=== PATIENT | female | born 1960 | race Caucasian/White ===

== ENCOUNTER 2022-07-18 15:10 | Outpatient (REF) | payer BC, SELFPAY ==
[2022-07-18 16:50] LABS: Abs Immature Grans 0.03 10^3/uL (0.0-0.06); Absolute Basophil Count 0.03 10^3/uL (0.0-0.2); Absolute Eosinophil Count 0.15 10^3/uL (0.0-0.7); Absolute Lymphocyte Count 1.69 10^3/uL (1.2-3.4); Absolute Monocyte Count 0.42 10^3/uL (0.1-0.8); Absolute Neutrophil Count 6.04 10^3/uL (1.2-6.7); Basophils % 0.4; Eosinophils % 1.8; HCT 45.8 % (36.0-46.0); HGB 15.4 g/dL (11.2-15.7); Immature Grans % 0.4; Lymphocytes % 20.2; MCH 29.6 pg (27.0-33.0); MCHC 33.6 % (32.0-36.0); MCV 88 fL (80-95); MPV 10.9 fL (8.0-11.0); Neutrophils % 72.2; Platelet Count 309 10^3/uL (130-400); RDW 12.1 % (11.7-14.6); RDW-SD 39.3 fL; WBC 8.36 10^3/uL (4.4-10.8)
[2022-07-18 17:29] LABS: Hemoglobin A1C 5.6 % (<5.7)
[2022-07-18 18:06] LABS: ALT 73 U/L (14-59); AST 35 U/L (15-37); Albumin 4.2 g/dL (3.4-5.0); Alkaline Phosphatase 110 U/L (46-116); Anion Gap 13.3 mmol/L (3-11); BUN 11 mg/dL (7-18); Bilirubin, Total 0.5 mg/dL (0.2-1.0); CO2 23.7 mmol/L (21.0-32.0); Calcium 9.3 mg/dL (8.5-10.1); Calculated LDL 144 mg/dL (<100); Chloride 105 mmol/L (98-107); Cholesterol 253 mg/dL (<200); Glucose 100 mg/dL (74-106); HDL Cholesterol 57 mg/dL (40-60); Potassium 4.5 mmol/L (3.5-5.1); Sodium 142 mmol/L (136-145); TSH (W/Ref FT4) 0.55 uIU/mL (0.36-3.74); Total Protein 8.1 g/dL (6.4-8.2); Triglyceride 261 mg/dL (<150); Vitamin B12 509 pg/mL (193-986)
== END 2022-07-18 15:11 | disposition home or self-care (01) ==
LOC: NCHCN 15:10
PROVIDERS: Visit Provider Nurse Practitioner Family
DX: K76.0 Fatty (change of) liver, not elsewhere classified (principal); F10.11 Alcohol abuse, in remission; Z13.220 Encounter for screening for lipoid disorders; R20.8 Other disturbances of skin sensation; R63.5 Abnormal weight gain; Z13.1 Encounter for screening for diabetes mellitus
CPT/HCPCS: 80053; 80061; 82607; 83036; 84443; 85025

== ENCOUNTER 2022-08-25 12:51 | Outpatient (REF) | payer BC, SELFPAY ==
--- NOTE | 2022-08-25 11:45 | PAPFT_PTH ---
PATIENT: Shivani Steinberg LOC: [facility]#:[id number] AGE/SX: 62/F ROOM: RE08/25/[address]: TAINA TELLEZ : 1960 BED: DIS: 08/25/2022 SPEC #: [id number] RECD: 08/25/22 17:48 STATUS: NICO REKelsey #: [id number] CLAUDIA: 08/25/22 11:[address]: Taina Tellez DEPT: [facility] Cytology RECD BY: Belinda Rico Tissues: 1 - CX/ENDOCX FOR PAP SMEARS Procedures: PAP THIN PREP/UVM Screening HPV DNA PROBE Comments: [id number]
== END 2022-08-25 12:52 | disposition home or self-care (01) ==
LOC: NCHCN 12:51
PROVIDERS: Visit Provider Nurse Practitioner Family
DX: Z12.4 Encounter for screening for malignant neoplasm of cervix (principal); Z00.00 Encounter for general adult medical examination without abnormal findings; Z11.51 Encounter for screening for human papillomavirus (HPV)
CPT/HCPCS: 88142; 87624

== ENCOUNTER 2022-09-05 02:02 | Outpatient (CLI) | payer BC, SELFPAY ==
--- NOTE | 2022-09-05 | DI.MAMMO_ITS ---
Exam(s) MG MAMMO SCREENING EXAM: MG MAMMO SCREENING CLINICAL HISTORY: SCREENING, Z12.39 TECHNIQUE: Mammograms were interpreted according to the usual protocol including computer analysis w ith CAD system, tomosynthesis and C-view imaging. COMPARISON: MG MAMMOGRAPHY SCREENING DIGITAL from 09/26/2012 MG MAMMOGRAPHY SCREENING DIGITAL from 10/16/2013 MG MAMMOGRAPHY SCREENING DIGITAL from 12/22/2014 MG MAMMOGRAPHY SCREENING DIGITAL from 03/14/2016 [facility] FINDINGS: The breasts are composed of scattered fibroglandular densities, Breast Density category B. No suspicious masses or suspicious microcalcifications are seen. No skin thickening or abnormal axillary lymph nodes are seen. There has been no significant change from prior exams. IMPRESSION: BI-RADS Category 1, Negative mammogram Yearly screening mammography is recommended. Breast Density - Category B, scattered fibroglandular densities. A negative radiographic report should not delay biopsy if a dominant or clinically suspicious mass is present. Up to ten percent of cancers are not identified on mammography. A negative report may reinforce clinical impression. Adenosis and dense breasts may obscure an underlying neoplasm. False positive reports average 6 to 10%. Patient will receive a letter notifying them of these results.
== END 2022-09-05 02:22 ==
LOC: DI 02:02
PROVIDERS: Visit Provider Nurse Practitioner Family
DX: Z12.31 Encounter for screening mammogram for malignant neoplasm of breast (principal)
CPT/HCPCS: 77063; 77067

== ENCOUNTER 2023-05-11 18:16 | Outpatient (CLI) | payer BC, SELFPAY ==
[2023-05-11 11:35] LABS: Abs Immature Grans 0.05 10^3/uL (0.0-0.06); Absolute Basophil Count 0.03 10^3/uL (0.0-0.2); Absolute Eosinophil Count 0.17 10^3/uL (0.0-0.7); Absolute Lymphocyte Count 1.93 10^3/uL (1.2-3.4); Absolute Monocyte Count 0.67 10^3/uL (0.1-0.8); Absolute Neutrophil Count 6.38 10^3/uL (1.2-6.7); Basophils % 0.3; Eosinophils % 1.8; HCT 45.6 % (36.0-46.0); HGB 15.3 g/dL (11.2-15.7); Immature Grans % 0.5; Lymphocytes % 20.9; MCH 29.1 pg (27.0-33.0); MCHC 33.6 % (32.0-36.0); MCV 87 fL (80-95); MPV 9.5 fL (8.0-11.0); Monocytes % 7.3; Neutrophils % 69.2; Platelet Count 302 10^3/uL (130-400); RBC 5.25 10^6/uL (3.93-5.22); RDW 12.5 % (11.7-14.6); RDW-SD 39.7 fL; WBC 9.23 10^3/uL (4.4-10.8)
[2023-05-11 12:01] LABS: ALT 87 U/L (14-59); AST 41 U/L (15-37); Albumin 4.1 g/dL (3.4-5.0); Alkaline Phosphatase 103 U/L (46-116); Anion Gap 10.7 mmol/L (3-11); BUN 12 mg/dL (7-18); Bilirubin, Total 0.5 mg/dL (0.2-1.0); CO2 28.3 mmol/L (21.0-32.0); Calcium 9.7 mg/dL (8.5-10.1); Chloride 103 mmol/L (98-107); Estimated GFR 62.91 (mL/min/1.73m2); GGT 204 U/L (5-55); Glucose 106 mg/dL (74-106); Potassium 4.4 mmol/L (3.5-5.1); Sodium 142 mmol/L (136-145); TSH (W/Ref FT4) 1.05 uIU/mL (0.36-3.74)
[2023-05-11 12:26] LABS: Ferritin 356 ng/mL (8-252)
== END 2023-05-11 18:17 | disposition home or self-care (01) ==
LOC: LBO 18:17
PROVIDERS: PCP Nurse Practitioner Family; Visit Provider Surgery
DX: K76.0 Fatty (change of) liver, not elsewhere classified; K80.20 Calculus of gallbladder without cholecystitis without obstruction; F10.11 Alcohol abuse, in remission
CPT/HCPCS: 36415; 80053; 82728; 82977; 84443; 85025

== ENCOUNTER → 2023-05-11 18:19 | Outpatient (CLI) | payer BC, SELFPAY ==
--- NOTE | 2023-05-11 10:45 | DI.RAD_ITS ---
Exam(s) XR CHEST 2V PA LATERAL EXAM: XR CHEST 2V PA LATERAL CLINICAL HISTORY: chronic sob since covid /second hand smoke exposure R06.81 R63.5 K76.0 TECHNIQUE: 2D digital imaging was performed. COMPARISON: No exams were available for comparison FINDINGS: Suboptimal pulmonary inflation on the lateral view. HEART: Normal size. Aorta: Not dilated. PULMONARY VASCULATURE: Normal. LUNGS: Clear. PLEURAL SPACE: No pleural effusion or pneumothorax. BONE:Unremarkable for age. Soft tissues: Unremarkable. IMPRESSION: No acute abnormality. DATA REPOSITORY: RADIATION DOSE DELIVERED:
== END ==
PROVIDERS: PCP Nurse Practitioner Family; Visit Provider Surgery
DX: R06.81 Apnea, not elsewhere classified (principal); K76.0 Fatty (change of) liver, not elsewhere classified; R74.01 Elevation of levels of liver transaminase levels; F10.11 Alcohol abuse, in remission
CPT/HCPCS: 71046

== ENCOUNTER 2023-05-19 08:42 | Day surgery (SDC) | payer BC, SELFPAY ==
--- NOTE | 2023-05-18 22:38 | COLE_ITS ---
Date of service: 05/19/23 Time of Service: 13:12 Colonoscopy Report Date of procedure: 05/19/23 Pre-op diagnosis general: History of polyps/colorectal cancer screening Post-op diagnosis procedure note: same (Polyps and diverticula) Surgeon: Deb Jamison Anesthesia Type: General:No Airway and General LMA/ETT Estimated blood loss (mL): 2 Pathology: other Complications: None Disposition: same day Prep: Miralax/Dulcolax Procedure Description: After informed consent was obtained the patient was taken to the procedure room and placed in a left decubitous position. Monitors were applied and a time out was done. The patients name, date of , procedure, allergies to medications and metal in their body was reviewed. The patient was then sedated. Once sedated and comfortable a rectal exam was done. We attempted to do this case w/natural airway. Pt was breathing but continued to desaturate despite having adequate respiration. Because we could not oxygenate her, the case was converted to GETA. External exam shows moderate external hemorrhoids with no sign of irritation/thrombosis/bleeding.. Internal exam revealed a normal sphincter tone and no palpable masses. The scope was then introduced and retrofelexed. No internal hemorrhoids were identified. The scope was then advanced to the cecum without difficulty. The TI and appendiceal orifice were identified. the scope was then slowly retracted over 10 minutes back into the rectum. She had a flat 0.75 cm polyp at 90 cm, This is removed with cold biting forcep. She has a flat 0.5 cm polyp at 80 cm, This is removed with a cold biting forcep. She had a flat 0.5 cm polyp in the cecum and this is removed with a cold biopsy forcep. All specimens are retrieved and no bleeding is noted. There are no AVMs or diverticula visualized today. the scope was removed and the patient was woken up and taken back to pacu surgery in stable condition. Patient had to be a GETA b/c of oxygenation Follow up: The patient should follow up in 5 all years, path pd, unless they develop changes in bowel habits or other new gastrointestinal complaints. [place] Bowel Prep [place] Bowel Prep Right Colon: 3 Left Colon: 3 Transverse Colon: 3 Total Score: 9
--- NOTE | 2023-05-18 22:39 | PDOC.DSDIS_ITS ---
Date of service: 05/19/23 Time of Service: 14:13 Discharge Plan Disposition Patient Disposition: Home Condition: Good Discharge Details Reason For Visit: Colorectal cancer screening Attending Provider: Deb Jamison Primary Care Provider: Taina Tellez Home Meds and New Rx's Prescriptions: Continued PreserVision AREDS 2,148 mcg-113 mg-45 mg-17.4mg tablet 2 tab PO DAILY NeuroActives BrainSustain 100-37.5-25-25 mg capsule 1 cap PO DAILY Discontinued bisacodyl [Dulcolax (bisacodyl)] 5 mg tablet,delayed release (DR/EC) 5 mg PO ONCE Qty: 4 0RF Rx Instructions: Take per colonoscopy instructions provided by ordering providers office polyethylene glycol 3350 17 gram/dose powder 17 g PO ONCE Qty: 238 0RF Rx Instructions: Take per colonoscopy instructions provided by ordering providers office Discharge Instructions Additional Instructions: DSU Colonoscopy Post- Op Instructions Instructions for Everyone who is given Anesthesia: For your safety, please do the following for the next twenty-four (24) hours: *Do Not operate a motor vehicle (car, truck, motorcycle, etc.) *Do Not drink alcoholic beverages or use any recreational drugs for the first 24 hours or while taking pain medications. The medications in your body may have a reaction that can be dangerous. *Do Not make any important decisions or sign any important papers. Findings: x3 polyps Pulmonary diffusion capacity limitations Elevated liver enzymes Follow up: My office will send you a letter in 2 to 3 weeks time with the results of the pathology and when we want to repeat the colonoscopy, most likely 5 years time. Pulmonary function testing (the hospital will call you to schedule) and follow- up with pulmonary medicine lung doctor Ultrasound of the liver-the hospital will call you to schedule this 1. No lifting over 20 pounds or strenuous activity for the first 24 hours after your procedure. After 24 hours there are no restrictions on your activity but you may feel fatigued for a few days. 2. After you arrive home you may have a light meal and return to your normal diet as you can tolerate it without feeling sick to your stomach. 3. You may have a bloated, gaseous feeling in your belly (abdomen) after a colonoscopy. Passing gas and belching will help. Walking or lying down on your left side with your knees flexed may relieve the discomfort. Call the office at [phone] (Office) or [phone] (Hospital) right away if you notice any of the following: a.Vomiting of blood or ?coffee ground stools?. b.Rectal bleeding 1Tbsp, blood clots or continuous bleeding. c.Severe belly (abdominal) pain. d.A hard distended belly (abdomen) and an inability to pass gas. 4. Please don?t expect to have a normal BM (bowel movement) for 2-3 days after your procedure. 5. If there are questions regarding the findings of your procedure, please contact your doctor 6. If you are unable to contact your doctor with a problem, contact the hospital at [phone]. 7. Continue all your regular medications unless directed otherwise. I understand the above instructions and have no questions. Signature of Patient or Adult Escort Name of Responsible Adult Escort Signature of Nurse Date/Time Stand Alone Forms: Anesthesia Discharge , Ashlee Atwood (DSU) Activity:: See above Diet:: See above Discharge Orders Discharge Orders: Discharge Order (Routine); Ordered 05/19/23 Ordered By: Deb Jamison DS: Diagnosis Discharge Diagnosis (1) Screening for malignant neoplasm of colon performed: Status: Acute Asessment and Plan: The patient is seen and examined after their colonoscopy.? The patient has been able to pass gas.? They are not having abdominal pain.? They have been able to tolerate liquids and a snack.? They do not have any nausea or vomiting.? They are not having any chest pain or shortness of breath.??? They are not having any rectal bleeding. Their vital signs have been stable-see nursing notes. We discussed findings during their colonoscopy, and any biopsies that were done/polyps that were removed. The patient will be sent a letter with any biopsy results, and when to repeat the colonoscopy.-see discharge instructions. Patient was given explicit instructions to follow-up regarding colonoscopy-refer to discharge instructions.? We reviewed resumption of medications. Patient verbalized understanding and discharged in stable and satisfactory condition- See nursing notes. (2) Villous adenoma of colon: Status: Acute
[2023-05-19] VITALS (11 sets, daily range): BP systolic 103–120; BP diastolic 55–75; PULSE 65–102; RESP 14–28; TEMP 36.3–36.5; O2SAT 95–100; BMI 32.1
[2023-05-19] MEDS: Lactated Ringers 1,000 ML 80 ML IV ×2 (09:28→11:30)
--- NOTE | 2023-05-19 10:22 | W.ANESPRE ---
General Info Date of Service Date Performed: 05/19/23 Height: 5 ft 6 in Weight: 90.3 kg Body Mass Index (BMI): 32.1 Surgical Procedure: Operation Date: 05/19/23 09:50 Proposed Procedure Side Surgeon carlos Jamison, Meds Allergies and Home Medications Allergies Allergy/AdvReac Type Severity Reaction Status Date / Time tetracycline Allergy Unknown Skin Rash Verified 05/19/23 09:06 erythromycin Allergy Unknown Skin Rash Uncoded 05/19/23 09:06 Home Medication Medication Instructions Recorded a-carn 100 mg-a-cyst 37.5 mg-ALA 1 cap PO DAILY 02/14/23 25 mg-Q10 25 mg-p.serine-regina capsule (NeuroActives BrainSustain) vitamins A,C,N-vvpg-dabbkt 2,148 2 tab PO DAILY 02/14/23 mcg-113 mg-45 mg-17.4 mg tablet (PreserVision AREDS) Current Visit Medications: Current Medications Generic Name Dose Route Start Last Admin Trade Name Freq PRN Reason Stop Dose Admin Hyoscyamine Sulfate 0.125 mg 05/19/23 10:34 Hyoscyamine 0.125 Mg Sl/Oral/Chew SL 06/18/23 10:33 DIRECTED PRN Hyoscyamine Sulfate 0.125 mg 05/19/23 10:36 Hyoscyamine 0.125 Mg Sl/Oral/Chew SL 06/18/23 10:35 DIRECTED PRN Ringer's Solution 1,000 mls @ 80 mls/hr 05/19/23 06:00 05/19/23 09:28 IV 05/19/23 23:59 80 mls/hr INFUSION MARCELLA Administration IV Miscellaneous Supplies 1 each 05/19/23 06:00 Iv Access IV 05/19/23 23:59 DIRECTED MARCELLA Ondansetron HCl 4 mg 05/19/23 10:34 Ondansetron 4 Mg/2 Ml Vial IVP 06/18/23 10:33 Q4H PRN PRN Nausea / Vomiting Ondansetron HCl 4 mg 05/19/23 10:36 Ondansetron 4 Mg/2 Ml Vial IVP 06/18/23 10:35 Q4H PRN PRN Nausea / Vomiting Sodium Chloride 0 ml 05/19/23 06:00 Normal Saline Flush 10 Ml Syr IV 05/19/23 23:59 PRN PRN Sodium Chloride 0 ml 05/19/23 06:00 Normal Saline 10 Ml Vial IJ 05/19/23 23:59 DIRECTED PRN Sterile Water 0 ml 05/19/23 06:00 Water,Injection,Sterile 10 Ml Vial IJ 05/19/23 23:59 DIRECTED PRN PFSH Active Problems Active Problems: Problem Status Onset Code Screening for malignant neoplasm of colon performed Z12.11 Chronic breathlessness R06.81 Elevated transaminase level R74.01 Cholelithiasis K80.20 Fatty liver K76.0 Burning tongue K14.6 Rash R21 Follicular cyst of skin and subcutaneous tissue L72.9 Weight gain R63.5 Medical History Medical History History of alcohol abuse Tobacco Smoking/Tobacco Use Status: Never Alcohol Alcohol Intake: former Substance Use Substance use: Never Substance use type: does not use Vital Signs and Lab Results Vital Signs Most Recent Vital Signs in EMR: Most Recent Vital Signs Temp Pulse Resp BP Pulse Ox 36.4 C L 78 18 114/74 99 05/19/23 08:48 05/19/23 08:48 05/19/23 08:48 05/19/23 08:48 05/19/23 08:48 Lab Results Blood Type / Crossmatch: No Data to Display Complete Blood Count: White Blood Count 9.23 10^3/uL (4.4-10.8) 05/11/23 11:30 Red Blood Count 5.25 10^6/uL (3.93-5.22) H 05/11/23 11:30 Hemoglobin 15.3 g/dL (11.2-15.7) 05/11/23 11:30 Hematocrit 45.6 % (36.0-46.0) 05/11/23 11:30 Platelet Count 302 10^3/uL (130-400) 05/11/23 11:30 Complete Metabolic Panel: Sodium 142 mmol/L (136-145) 05/11/23 11:30 Potassium 4.4 mmol/L (3.5-5.1) 05/11/23 11:30 Chloride 103 mmol/L (98-107) 05/11/23 11:30 Carbon Dioxide 28.3 mmol/L (21.0-32.0) 05/11/23 11:30 BUN 12 mg/dL (7-18) 05/11/23 11:30 Creatinine 1.0 mg/dL (0.55-1.02) 05/11/23 11:30 Est GFR (CKD-EPI 2020) 62.91 (mL/min/1.73m2) 05/11/23 11:30 Calcium 9.7 mg/dL (8.5-10.1) 05/11/23 11:30 Albumin 4.1 g/dL (3.4-5.0) 05/11/23 11:30 Glucose 106 mg/dL (74-106) 05/11/23 11:30 Liver Function Panel: Alanine Aminotransferase (ALT/SGPT) 87 U/L (14-59) H 05/11/23 11:30 Aspartate Amino Transf (AST/SGOT) 41 U/L (15-37) H 05/11/23 11:30 Gamma Glutamyl Transpeptidase 204 U/L (5-55) H 05/11/23 11:30 Coagulation Panel: No Data to Display Cardiac Panel: No Data to Display Arterial Blood Gas: No Data to Display Venous Blood Gas: No Data to Display Pancreas Panel: No Data to Display Thyroid Panel: Thyroid Stimulating Hormone (TSH) 1.05 uIU/mL (0.36-3.74) 05/11/23 11:30 Infectious Disease: No Data to Display Blood Cultures: No Data to Display Toxicology Panel: No Data to Display Anesthesia Assessment and Plan Anesthesia History Personal History: No History of Anesthesia Complications Family History: No Family History of Anesthesia Complications Exercise Tolerance Exercise Tolerance: Metabolic Equivalents>4 Pertinent Negatives Pertinent Negatives: No Symptoms of GERD, No Major Cardiovascular Symptoms or Complaints and No Major Pulmonary Symptoms or Complaints Cardiac & Pulmonary Exam Cardiac Exam: Normal S1/S2 Heart Sounds Pulmonary Exam: Clear Bilateral Breath Sounds Implantable Cardiac Device Does patient have a Pacemaker or an ICD?: No Airway Exam Known Difficult Airway: No Mallampati Class: 2 Mouth Opening: Normal (> 3cm) Thyromental Distance: Greater than 3 cm Neck Range of Motion: Full ROM Neck Circumference: Normal Teeth Condition: Normal Dentition ASA Classification ASA Score: ASA 2 Emergency Case?: No NPO Status NPO Status: NPO Clears >2 hours, Solids >8 hours Anesthesia Plan Resuscitation Status: Full Code Anesthesia Technique: General Anesthesia Airway Planned: Natural Airway Monitors Used: Standard Monitors
--- NOTE | 2023-05-19 11:05 | BOWEL_PTH ---
PATIENT: Shivani Steinberg LOC: [facility] U#:[id number] AGE/SX: 63/F ROOM: RE05/19/[address]: Deb Jamison : 1960 BED: DIS: 05/19/2023 SPEC #: [id number] RECD: 05/19/23 13:06 STATUS: NICO REQ #: [id number] CLAUDIA: 05/19/23 11:[address]: Deb Jamison DEPT: Surgical Specimen RECD BY: Belinda Rico ENTERED: 05/19/23 13:07 SP TYPE: Bowel OTHR DR: CHANA DILLARD Tissues: 1 - BIOPSY BOWEL 2 - BIOPSY BOWEL 3 - BIOPSY BOWEL Procedures: GROSS AND MICRO LEVEL 4 Comments: [id number]
[2023-05-19 14:19] LABS: C-Reactive Protein < 0.50 mg/dL (<or=0.5)
--- NOTE | 2023-05-19 14:22 | W.ANESPOSTOP ---
Postoperative Evaluation Date, Time and Location Date Performed: 05/19/23 Time Performed: 14:22 Patient Location: Day Surgery Unit Vital Signs Most Recent Imported Vital Signs: Most Recent Vital Signs Temp Pulse Resp BP Pulse Ox 36.3 C L 67 16 118/74 98 05/19/23 13:13 05/19/23 13:13 05/19/23 13:13 05/19/23 13:13 05/19/23 13:13 Pain Score Most Recent Pain Score: Most Recent Pain Score Pain Level 0 05/19/23 13:13 Assessment Mental Status: Awake (Alert & Oriented to Patient Baseline) Airway and Respiratory Function: Patent airway with normal (patient baseline) respiratory exam Cardiovascular Function: Hemodynamically Stable Hydration Status: Adequately Hydrated Nausea & Vomiting: No Nausea or Vomiting Pain: Pt. Denies Any Pain Peripheral Nerve Block: Patient did not receive a nerve block
[2023-05-19 22:08] LABS: Rheumatoid Factor <8.6 IU/mL (<12.0)
[2023-05-20 10:05] LABS: HIV-1/2 Ag & Ab Screen Negative (Negative)
[2023-05-21 09:14] LABS: Angiotensin Converting Enzyme 33 U/L (16 - 85)
[2023-05-22 10:59] LABS: HBs Antibody, Qual Negative (See Note); HBs Antibody, Quant <3.1 mIU/mL (See Note); Hepatitis B Core Antibody Negative (Negative); Hepatitis B surface Ag Negative (Negative); Hepatitis C Ab w Rflx HCV PCR Negative (Negative)
[2023-05-23 15:39] LABS: ANA Interpretation Negative (Negative)
== END 2023-05-19 14:38 | disposition home or self-care (01) ==
LOC: SUR 08:43
PROVIDERS: PCP Nurse Practitioner Family; Visit Provider Surgery
PROC: 0DJD8ZZ Inspection of Lower Intestinal Tract, Via Natural or Artificial Opening Endoscopic (ICD-10-PCS; CPT 45378; principal; 2023-05-19 09:45)
DX: Z12.11 Encounter for screening for malignant neoplasm of colon (principal); D12.4 Benign neoplasm of descending colon; K57.30 Diverticulosis of large intestine without perforation or abscess without bleeding; R06.81 Apnea, not elsewhere classified; D12.3 Benign neoplasm of transverse colon; K63.89 Other specified diseases of intestine
CPT/HCPCS: 45380; 82164; 82390; 86704; 86706; 86803; 87340; 87389; 88305; 86038; 86140; 86431; J2250; J2704; J3010

== ENCOUNTER 2023-05-25 03:35 | Outpatient (CLI) | payer BC, SELFPAY ==
[2023-05-25] MEDS: Levalbuterol HFA 15 GM INH 4 PUFF IH (16:28)
[2023-05-25] MEDS: Inhaler, Assist Device 1 EACH MC (16:28)
--- NOTE | 2023-05-26 11:08 | W.PFT ---
Date of service: 05/25/23 Time of Service: 14:56 Pulmonary Function Test Result Indications: Dyspnea Interpretation Spirometry: There is no airflow limitation. No bronchodilator response. Lung Volumes: Normal lung volumes Diffusion Capacity: Normal diffusion Airway Pressure: Increased airways resistance Impression Normal lung function aside from increased airways resistance. Clinical Correlation therefore is recommended.
== END 2023-05-25 03:36 | disposition home or self-care (01) ==
LOC: RT 03:35
PROVIDERS: PCP Nurse Practitioner Family; Visit Provider Surgery
DX: R06.00 Dyspnea, unspecified (principal)
CPT/HCPCS: 94060; 94726; 94729

== ENCOUNTER 2024-11-18 07:29 | Outpatient (CLI) | payer MEDICARE, SELFPAY ==
[2024-11-18 11:40] LABS: Abs Immature Grans 0.05 10^3/uL (0.0-0.06); HCT 47.8 % (36.0-46.0); HGB 16.3 g/dL (11.2-15.7); Immature Grans % 0.5 %; MCH 30.4 pg (27.0-33.0); MCHC 34.1 % (32.0-36.0); MCV 89 fL (80-95); MPV 9.8 fL (8.0-11.0); Platelet Count 275 10^3/uL (130-400); RBC 5.37 10^6/uL (3.93-5.22); RDW 12.3 % (11.7-14.6); RDW-SD 40.2 fL; WBC 9.60 10^3/uL (4.4-10.8)
[2024-11-18 12:00] LABS: Hemoglobin A1C 5.7 % (<5.7)
[2024-11-18 12:07] LABS: ALT 117 U/L (14-59); AST 39 U/L (15-37); Albumin 4.3 g/dL (3.4-5.0); Alkaline Phosphatase 101 U/L (46-116); Anion Gap 8.8 mmol/L (3-11); BUN 13 mg/dL (7-18); Bilirubin, Total 0.6 mg/dL (0.2-1.0); CO2 28.2 mmol/L (21.0-32.0); Calcium 9.4 mg/dL (8.5-10.1); Calculated LDL 177 mg/dL (<100); Chloride 104 mmol/L (98-107); Cholesterol 285 mg/dL (<200); Estimated GFR 70.95 (mL/min/1.73m2); Glucose 93 mg/dL (74-106); HDL Cholesterol 60 mg/dL (>or=50); Potassium 4.0 mmol/L (3.5-5.1); Sodium 141 mmol/L (136-145); Total Protein 8.3 g/dL (6.4-8.2); Triglyceride 242 mg/dL (<150)
== END 2024-11-18 07:30 | disposition home or self-care (01) ==
LOC: LBO 11-19 07:29
DX: Z00.00 Encounter for general adult medical examination without abnormal findings (principal)
CPT/HCPCS: 36415; 80053; 80061; 83036; 85025

== ENCOUNTER 2024-12-05 04:02 | Outpatient (CLI) | payer MEDICARE, SELFPAY ==
--- NOTE | 2024-12-05 | DI.DEXA_ITS ---
Exam(s) XR DEXA BONE DENSITY W/WO RSOENDA EXAM: XR DEXA BONE DENSITY W/WO ROSENDA CLINICAL HISTORY: MENOPAUSAL STATE Z78.0 SCREENING OSTEOPOROSIS Z13.820 TECHNIQUE: COMPARISON: No exams were available for comparison FINDINGS: Lateral Spine Image: Unremarkable. No compression deformities identified. Left hip: Total T-Score: 0.0 Total Z-Score: 1.3 T- and Z-scores: There is no evidence of osteoporosis. Lumbar Spine: Total T-Score: -0.4 Total Z-Score: 1.4 T- and Z-scores: Within normal limits. IMPRESSION: No evidence of osteoporosis.
--- NOTE | 2024-12-05 15:13 | DI.MAMMO_ITS ---
Exam(s) MAMMO SCREENING EXAM: MAMMO SCREENING CLINICAL HISTORY: SCREENING MAMMO Z00.00 ADULT MEDICAL EXAM TECHNIQUE: Mammograms were interpreted according to the usual protocol including computer analysis with CAD system, tomosynthesis and C-view imaging. COMPARISON: 2014 through 2022 FINDINGS: The breasts are composed of scattered fibroglandular densities, Breast Density category B. No suspicious masses or suspicious microcalcifications are seen. No skin thickening or abnormal axillary lymph nodes are seen. There has been no significant change from prior exams. IMPRESSION: BI-RADS Category 1, Negative mammogram Yearly screening mammography is recommended. Breast Density - Category B - There are scattered areas of fibroglandular density. Breast density Category C or D implies that the patient has dense breast tissue. Dense breast tissue can make it harder to find cancer on a mammogram. Dense breast tissue is also associated with an increased risk of breast cancer. This information about the result of the mammogram report was provided to the patient to raise their awareness. Use this report when you speak with the patient about their risks for breast cancer, which includes their family history. At that time, you may recommend additional screening tests (Ultrasound or MRI) as these tests may add significant information. A negative radiographic report should not delay biopsy if a dominant or clinically suspicious mass is present. Up to ten percent of cancers are not identified on mammography. A negative report may reinforce clinical impression. Adenosis and dense breasts may obscure an underlying neoplasm. False positive reports average 6 to 10%. Patient will receive a letter notifying them of these results.
== END 2024-12-05 04:22 ==
DX: Z13.820 Encounter for screening for osteoporosis (principal); Z78.0 Asymptomatic menopausal state; Z12.31 Encounter for screening mammogram for malignant neoplasm of breast
CPT/HCPCS: 77063; 77067; 77080